=== PATIENT | male | born 1930 | race Caucasian/White ===

== ENCOUNTER 2018-01-09 09:59 | Emergency (ER) | payer OTHER ==
[2018-01-09 11:13] LABS: ADD MAN DIFF? NO
[2018-01-09 11:16] LABS: WHITE BLOOD COUNT 9.7 10^3/ul (4.8-10.8)
[2018-01-09 11:16] LABS: BASOPHILS % 0.3 % (0.0-2.0); EOSINOPHILS # 0.3 10^3/ul (0.0-0.5); EOSINOPHILS % 3.2 % (0.0-7.0); HEMOGLOBIN 11.4 g/dl (14.0-18.0); LYMPHOCYTES # 1.2 10^3/ul (0.8-2.9); LYMPHOCYTES % 12.3 % (15.0-51.0); MEAN CORPUSCULAR HEMOGLOBIN 32.1 pg (29.0-33.0); MEAN CORPUSCULAR HGB CONC 34.5 g/dl (32.0-37.0); MEAN PLATELET VOLUME 9.7 fl (7.4-10.4); MONOCYTE # 0.7 10^3/ul (0.3-0.9); NEUTROPHIL # 7.4 10^3/ul (1.6-7.5); NEUTROPHILS % 76.7 % (39.0-77.0); PLATELET COUNT 250 10^3/UL (140-415); RED BLOOD COUNT 3.55 10^6/ul (4.70-6.10); RED CELL DISTRIBUTION WIDTH 15.3 % (11.5-14.5)
[2018-01-09 11:33] LABS: ALANINE AMINOTRANSFERASE 25 IU/L (13-69); ALBUMIN 3.5 g/dl (3.3-4.9); ALBUMIN/GLOBULIN RATIO 1.12; ALKALINE PHOSPHATASE 97 IU/L (42-121); ANION GAP 15 (8-16); ASPARTATE AMINO TRANSFERASE 28 IU/L (15-46); BILIRUBIN,INDIRECT 1.3 mg/dl (0-1.1); BILIRUBIN,TOTAL 1.3 mg/dl (0.2-1.3); BLOOD UREA NITROGEN 26 mg/dl (7-20); CALCIUM 8.4 mg/dl (8.4-10.2); CARBON DIOXIDE 23 mmol/L (21-31); CHLORIDE 98 mmol/L (97-110); CREATININE 1.18 mg/dl (0.61-1.24); GLUCOSE 91 mg/dl (70-220); INR 0.97; LIPASE 157 U/L (23-300); POTASSIUM 4.5 mmol/L (3.5-5.1); SODIUM 131 mmol/L (135-144); TOTAL PROTEIN 6.6 g/dl (6.1-8.1)
[2018-01-09 11:35] LABS: PARTIAL THROMBOPLASTIN TIME 29.2 Sec (25.0-35.0)
[2018-01-09 11:47] LABS: TROPONIN-I < 0.012 ng/ml (0.00-0.12)
[2018-01-09] MEDS: ONDANSETRON 4 MG INJ IV (12:32)
[2018-01-09] MEDS: morphine 4 MG/ML VIAL IV (12:32)
== END 2018-01-09 13:08 | disposition home or self-care (01) ==
LOC: E/R 09:59
DX: R10.84 Generalized abdominal pain (principal); Z79.01 Long term (current) use of anticoagulants
CPT/HCPCS: 36415; 71045; 74176; 80053; 83690; 84484; 85025; 85610; 85730; 93005; 96374; 96375; 99285-25

== ENCOUNTER 2018-01-11 22:44 | Inpatient (IN) | payer OTHER ==
[2018-01-11] MEDS: SOD CHLORIDE 0.9% 500 ML IV (23:39)
[2018-01-11] MEDS: morphine 2 MG INJ IV (23:40)
[2018-01-11] MEDS: ONDANSETRON 4 MG INJ IV (23:40)
[2018-01-11 23:53] LABS: ADD MAN DIFF? NO
[2018-01-11 23:57] LABS: BASOPHILS % 0.2 % (0.0-2.0); EOSINOPHILS # 0.1 10^3/ul (0.0-0.5); EOSINOPHILS % 0.5 % (0.0-7.0); HEMATOCRIT 31.9 % (42.0-52.0); HEMOGLOBIN 11.2 g/dl (14.0-18.0); LYMPHOCYTES # 1.6 10^3/ul (0.8-2.9); LYMPHOCYTES % 14.9 % (15.0-51.0); MEAN CORPUSCULAR HEMOGLOBIN 31.7 pg (29.0-33.0); MEAN CORPUSCULAR HGB CONC 35.1 g/dl (32.0-37.0); MEAN CORPUSCULAR VOLUME 90.4 fl (82.0-101.0); MEAN PLATELET VOLUME 10.6 fl (7.4-10.4); MONOCYTE # 0.7 10^3/ul (0.3-0.9); MONOCYTES % 7.1 % (0.0-11.0); NEUTROPHILS % 76.7 % (39.0-77.0); PLATELET COUNT 279 10^3/UL (140-415); RED BLOOD COUNT 3.53 10^6/ul (4.70-6.10); RED CELL DISTRIBUTION WIDTH 14.8 % (11.5-14.5)
[2018-01-11 23:57] LABS: WHITE BLOOD COUNT 10.4 10^3/ul (4.8-10.8)
[2018-01-12 00:20] LABS: ALANINE AMINOTRANSFERASE 22 IU/L (13-69); ALBUMIN 3.9 g/dl (3.3-4.9); ALBUMIN/GLOBULIN RATIO 1.39; ALKALINE PHOSPHATASE 95 IU/L (42-121); ANION GAP 14 (8-16); ASPARTATE AMINO TRANSFERASE 27 IU/L (15-46); BILIRUBIN,INDIRECT 0.9 mg/dl (0-1.1); BILIRUBIN,TOTAL 0.9 mg/dl (0.2-1.3); BLOOD UREA NITROGEN 31 mg/dl (7-20); CARBON DIOXIDE 20 mmol/L (21-31); CHLORIDE 93 mmol/L (97-110); CREATININE 1.07 mg/dl (0.61-1.24); GLUCOSE 96 mg/dl (70-220); POTASSIUM 5.2 mmol/L (3.5-5.1); SODIUM 122 mmol/L (135-144); TOTAL PROTEIN 6.7 g/dl (6.1-8.1)
[2018-01-12 00:32] LABS: B-TYPE NATRIURETIC PEPTIDE 4660 PG/ML (0-450)
[2018-01-12 00:33] LABS: TROPONIN-I < 0.012 ng/ml (0.00-0.12)
[2018-01-12] MEDS: FUROSEMIDE 40 MG INJ IV (02:00)
[2018-01-12] MEDS: NA POLYST SULFON 15 GM/60 ML BTL PO (02:01)
[2018-01-12] MEDS ORDERED: ACETAMINOPHEN 325 MG TAB PO ×2 (03:00→08:00)
[2018-01-12] MEDS ORDERED: ONDANSETRON 4 MG INJ IV ×2 (03:00→08:00)
[2018-01-12] MEDS: HYDROCODONE/APAP (5/325) TAB PO (03:02)
[2018-01-12] MEDS: SOD CHLORIDE 0.9% 1,000 ML IV ×3 (03:02→17:38)
[2018-01-12 04:16] LABS: SODIUM,URINE RANDOM 96 mmol/L (30-90)
[2018-01-12 04:17] LABS: ADD UMIC NO; UR ASCORBIC ACID NEGATIVE (NEGATIVE); UR BILIRUBIN (Dip) NEGATIVE (NEGATIVE); UR BLOOD (Dip) NEGATIVE (NEGATIVE); UR CLARITY CLEAR (CLEAR); UR COLOR COLORLESS (YELLOW); UR GLUCOSE (Dip) NEGATIVE (NEGATIVE); UR KETONES (Dip) NEGATIVE (NEGATIVE); UR LEUKOCYTE ESTERASE (Dip) NEGATIVE Leu/ul (NEGATIVE); UR NITRITE (Dip) NEGATIVE (NEGATIVE); UR SPECIFIC GRAVITY (Dip) 1.004 (1.003-1.030); UR TOTAL PROTEIN (Dip) NEGATIVE (NEGATIVE); UR UROBILINOGEN (Dip) NEGATIVE (NEGATIVE)
[2018-01-12 05:02] LABS: OSMOLALITY,URINE 235 mOsm/kg (250-1200)
[2018-01-12 05:19] LABS: OSMOLALITY 260 mOsm/kg (280-295)
[2018-01-12] MEDS ORDERED: ALBUTEROL/IPRATROPIUM (NEB) 3 ML AMP HHN (08:00)
[2018-01-12] MEDS ORDERED: NACL 0.9% 3 ML SYG IV (08:00)
[2018-01-12] MEDS ORDERED: NITROGLYCERIN (SL) 0.4 MG TAB SL (08:00)
[2018-01-12 08:06] LABS: ADD MAN DIFF? NO
[2018-01-12 08:10] LABS: WHITE BLOOD COUNT 9.8 10^3/ul (4.8-10.8)
[2018-01-12 08:10] LABS: BASOPHILS % 0.2 % (0.0-2.0); EOSINOPHILS # 0.1 10^3/ul (0.0-0.5); EOSINOPHILS % 0.7 % (0.0-7.0); HEMATOCRIT 34.9 % (42.0-52.0); HEMOGLOBIN 12.1 g/dl (14.0-18.0); LYMPHOCYTES # 1.9 10^3/ul (0.8-2.9); LYMPHOCYTES % 19.3 % (15.0-51.0); MEAN CORPUSCULAR HEMOGLOBIN 31.6 pg (29.0-33.0); MEAN CORPUSCULAR HGB CONC 34.7 g/dl (32.0-37.0); MEAN CORPUSCULAR VOLUME 91.1 fl (82.0-101.0); MEAN PLATELET VOLUME 9.8 fl (7.4-10.4); MONOCYTES % 9.8 % (0.0-11.0); NEUTROPHIL # 6.8 10^3/ul (1.6-7.5); NEUTROPHILS % 69.4 % (39.0-77.0); PLATELET COUNT 291 10^3/UL (140-415); RED BLOOD COUNT 3.83 10^6/ul (4.70-6.10); RED CELL DISTRIBUTION WIDTH 14.6 % (11.5-14.5)
[2018-01-12 08:25] LABS: CREATINE KINASE 131 IU/L (23-200)
[2018-01-12 08:39] LABS: CK INDEX 3.5; TROPONIN-I 0.016 ng/ml (0.00-0.12)
[2018-01-12 08:40] LABS: ALANINE AMINOTRANSFERASE 29 IU/L (13-69); ALBUMIN/GLOBULIN RATIO 1.33; ALKALINE PHOSPHATASE 103 IU/L (42-121); ANION GAP 16 (8-16); ASPARTATE AMINO TRANSFERASE 25 IU/L (15-46); BILIRUBIN,INDIRECT 0.8 mg/dl (0-1.1); BILIRUBIN,TOTAL 0.8 mg/dl (0.2-1.3); BLOOD UREA NITROGEN 28 mg/dl (7-20); CARBON DIOXIDE 22 mmol/L (21-31); CHLORIDE 97 mmol/L (97-110); CREATININE 1.18 mg/dl (0.61-1.24); GLUCOSE 93 mg/dl (70-220); POTASSIUM 4.3 mmol/L (3.5-5.1); SODIUM 131 mmol/L (135-144)
[2018-01-12 08:41] LABS: CK-MB 4.56 ng/ml (0.0-2.4)
[2018-01-12] MEDS: FERROUS SULFATE (EC) 325 MG TAB PO (10:18)
[2018-01-12] MEDS: ALLOPURINOL 100 MG TAB PO ×2 (10:18→21:27)
[2018-01-12] MEDS: SUCRALFATE (100 MG/ML) 10ML CUP PO ×4 (10:18→21:27)
[2018-01-12] MEDS: MAGNESIUM OXIDE 400 MG TAB PO ×2 (10:19→21:27)
[2018-01-12] MEDS: DOCUSATE SODIUM 100 MG CAP PO ×2 (10:27→21:27)
[2018-01-12] MEDS: CLOPIDOGREL 75 MG TAB PO (10:27)
[2018-01-12] MEDS: PANTOPRAZOLE (EC) 40 MG TAB PO ×2 (12:29→17:58)
[2018-01-12 14:32] LABS: CREATINE KINASE 108 IU/L (23-200)
[2018-01-12 14:43] LABS: CK INDEX 3.6
[2018-01-12 14:48] LABS: CK-MB 3.87 ng/ml (0.0-2.4); TROPONIN-I < 0.012 ng/ml (0.00-0.12)
[2018-01-12] MEDS: morphine 2 MG INJ IV (18:33)
[2018-01-12] MEDS: ATORVASTATIN 80 MG TAB PO (21:27)
[2018-01-13] MEDS: SOD CHLORIDE 0.9% 1,000 ML IV ×2 (00:13→12:51)
[2018-01-13] MEDS: morphine 2 MG INJ IV ×5 (04:39→20:43)
[2018-01-13] MEDS: PANTOPRAZOLE (EC) 40 MG TAB PO ×2 (06:21→17:34)
[2018-01-13] MEDS: SUCRALFATE (100 MG/ML) 10ML CUP PO ×4 (08:33→20:40)
[2018-01-13] MEDS: MAGNESIUM OXIDE 400 MG TAB PO ×2 (08:33→20:40)
[2018-01-13] MEDS: CLOPIDOGREL 75 MG TAB PO (08:34)
[2018-01-13] MEDS: POTASSIUM CHLORIDE (SR) 20 MEQ TAB PO (08:34)
[2018-01-13] MEDS: DOCUSATE SODIUM 100 MG CAP PO ×2 (08:34→20:40)
[2018-01-13] MEDS: ALLOPURINOL 100 MG TAB PO ×2 (08:34→20:40)
[2018-01-13 08:58] LABS: ADD MAN DIFF? NO
[2018-01-13 09:05] LABS: BASOPHILS % 0.5 % (0.0-2.0); EOSINOPHILS # 0.2 10^3/ul (0.0-0.5); EOSINOPHILS % 2.4 % (0.0-7.0); HEMATOCRIT 30.1 % (42.0-52.0); HEMOGLOBIN 10.4 g/dl (14.0-18.0); LYMPHOCYTES # 2.1 10^3/ul (0.8-2.9); LYMPHOCYTES % 26.5 % (15.0-51.0); MEAN CORPUSCULAR HEMOGLOBIN 31.9 pg (29.0-33.0); MEAN CORPUSCULAR HGB CONC 34.6 g/dl (32.0-37.0); MEAN CORPUSCULAR VOLUME 92.3 fl (82.0-101.0); MEAN PLATELET VOLUME 10.1 fl (7.4-10.4); MONOCYTES % 12.5 % (0.0-11.0); NEUTROPHIL # 4.6 10^3/ul (1.6-7.5); NEUTROPHILS % 57.5 % (39.0-77.0); PLATELET COUNT 273 10^3/UL (140-415); RED BLOOD COUNT 3.26 10^6/ul (4.70-6.10); RED CELL DISTRIBUTION WIDTH 14.9 % (11.5-14.5)
[2018-01-13 09:22] LABS: ANION GAP 15 (8-16); BLOOD UREA NITROGEN 26 mg/dl (7-20); CALCIUM 8.4 mg/dl (8.4-10.2); CARBON DIOXIDE 23 mmol/L (21-31); CHLORIDE 101 mmol/L (97-110); CREATININE 1.18 mg/dl (0.61-1.24); GLUCOSE 83 mg/dl (70-220); MAGNESIUM 1.3 mg/dl (1.7-2.5); PHOSPHORUS 3.7 mg/dl (2.5-4.9); POTASSIUM 3.8 mmol/L (3.5-5.1); SODIUM 135 mmol/L (135-144)
[2018-01-13] MEDS: IOHEXOL 14.3 MG(I)/ML (ADULT) BTL PO (16:27)
[2018-01-13] MEDS ORDERED: SOD CHLORIDE 0.9% 100 ML (18:34)
[2018-01-13] MEDS ORDERED: IOHEXOL 300MG/ML 150 ML BTL (18:34)
[2018-01-13] MEDS: ATORVASTATIN 80 MG TAB PO (20:40)
[2018-01-13] MEDS: MAGNESIUM SULFATE 4 GM/100 ML 100 ML IVPB (22:05)
[2018-01-14] MEDS: morphine 2 MG INJ IV ×4 (01:48→19:11)
[2018-01-14] MEDS: PANTOPRAZOLE (EC) 40 MG TAB PO ×2 (06:27→17:01)
[2018-01-14] MEDS: DOCUSATE SODIUM 100 MG CAP PO ×2 (09:00→22:01)
[2018-01-14] MEDS: CLOPIDOGREL 75 MG TAB PO (09:20)
[2018-01-14] MEDS: MAGNESIUM OXIDE 400 MG TAB PO ×2 (09:20→22:01)
[2018-01-14] MEDS: SUCRALFATE (100 MG/ML) 10ML CUP PO ×4 (09:20→22:01)
[2018-01-14] MEDS: ALLOPURINOL 100 MG TAB PO ×2 (09:20→22:02)
[2018-01-14] MEDS: POTASSIUM CHLORIDE (SR) 20 MEQ TAB PO (09:21)
[2018-01-14] MEDS: LISINOPRIL 10 MG TAB PO (09:21)
[2018-01-14] MEDS: predniSONE 50 MG TAB PO (17:01)
[2018-01-14] MEDS: ATORVASTATIN 80 MG TAB PO (22:01)
[2018-01-15] MEDS: hydrALAzine 20 MG INJ IV (04:41)
[2018-01-15] MEDS: PANTOPRAZOLE (EC) 40 MG TAB PO (05:53)
[2018-01-15] MEDS: SUCRALFATE (100 MG/ML) 10ML CUP PO ×2 (08:48→12:19)
[2018-01-15] MEDS: ALLOPURINOL 100 MG TAB PO (08:48)
[2018-01-15] MEDS: LISINOPRIL 10 MG TAB PO (08:48)
[2018-01-15] MEDS: POTASSIUM CHLORIDE (SR) 20 MEQ TAB PO (08:48)
[2018-01-15] MEDS: DOCUSATE SODIUM 100 MG CAP PO (08:48)
[2018-01-15] MEDS: MAGNESIUM OXIDE 400 MG TAB PO (08:48)
[2018-01-15] MEDS: CLOPIDOGREL 75 MG TAB PO (08:49)
[2018-01-15] MEDS: morphine 2 MG INJ IV (10:38)
[2018-01-15 11:36] LABS: ALANINE AMINOTRANSFERASE 26 IU/L (13-69); ALBUMIN/GLOBULIN RATIO 1.03; ALKALINE PHOSPHATASE 92 IU/L (42-121); ANION GAP 15 (8-16); ASPARTATE AMINO TRANSFERASE 23 IU/L (15-46); BILIRUBIN,INDIRECT 0.6 mg/dl (0-1.1); BILIRUBIN,TOTAL 0.6 mg/dl (0.2-1.3); BLOOD UREA NITROGEN 28 mg/dl (7-20); CALCIUM 8.5 mg/dl (8.4-10.2); CARBON DIOXIDE 22 mmol/L (21-31); CHLORIDE 99 mmol/L (97-110); CREATININE 1.16 mg/dl (0.61-1.24); GLUCOSE 97 mg/dl (70-220); POTASSIUM 4.8 mmol/L (3.5-5.1); SODIUM 131 mmol/L (135-144); TOTAL PROTEIN 5.9 g/dl (6.1-8.1)
== END 2018-01-15 16:50 | disposition home or self-care (01) | DRG 543 ==
LOC: E/R 22:44 → TEL 01-12 13:56
DX: M80.08XA Age-related osteoporosis with current pathological fracture, vertebra(e), initial encounter for fracture (principal); E87.0 Hyperosmolality and hypernatremia; E87.5 Hyperkalemia; F03.90 Unspecified dementia, unspecified severity, without behavioral disturbance, psychotic disturbance, mood disturbance, and anxiety; E86.0 Dehydration; I25.10 Atherosclerotic heart disease of native coronary artery without angina pectoris; M1A.9XX0 Chronic gout, unspecified, without tophus (tophi); I10 Essential (primary) hypertension; R07.81 Pleurodynia; R10.817 Generalized abdominal tenderness; M54.9 Dorsalgia, unspecified; I25.2 Old myocardial infarction; Z79.02 Long term (current) use of antithrombotics/antiplatelets; Z87.11 Personal history of peptic ulcer disease; Z95.5 Presence of coronary angioplasty implant and graft; Z90.49 Acquired absence of other specified parts of digestive tract
CPT/HCPCS: 36415; 71045; 74177; 80048; 80053; 81003; 82550; 82553; 83735; 83880; 83930; 83935; 84100; 84300; 84484; 85025; 93005; 96361; 96374; 96375; 99285-25

== ENCOUNTER 2018-02-24 07:41 | Emergency (ER) | payer OTHER ==
[2018-02-24 08:58] LABS: ADD MAN DIFF? NO
[2018-02-24 09:00] LABS: BASOPHILS % 0.4 % (0.0-2.0); EOSINOPHILS # 1.1 10^3/ul (0.0-0.5); EOSINOPHILS % 13.2 % (0.0-7.0); HEMATOCRIT 31.9 % (42.0-52.0); HEMOGLOBIN 10.7 g/dl (14.0-18.0); LYMPHOCYTES # 2.5 10^3/ul (0.8-2.9); LYMPHOCYTES % 30.7 % (15.0-51.0); MEAN CORPUSCULAR HEMOGLOBIN 31.4 pg (29.0-33.0); MEAN CORPUSCULAR HGB CONC 33.5 g/dl (32.0-37.0); MEAN CORPUSCULAR VOLUME 93.5 fl (82.0-101.0); MEAN PLATELET VOLUME 9.8 fl (7.4-10.4); MONOCYTE # 0.9 10^3/ul (0.3-0.9); MONOCYTES % 10.5 % (0.0-11.0); NEUTROPHIL # 3.6 10^3/ul (1.6-7.5); NEUTROPHILS % 44.8 % (39.0-77.0); PLATELET COUNT 411 10^3/UL (140-415); RED BLOOD COUNT 3.41 10^6/ul (4.70-6.10)
[2018-02-24 09:00] LABS: WHITE BLOOD COUNT 8.1 10^3/ul (4.8-10.8)
[2018-02-24] MEDS: SOD CHLORIDE 0.9% 500 ML IV (09:01)
[2018-02-24] MEDS: morphine 4 MG/ML VIAL IV ×2 (09:01→10:26)
[2018-02-24] MEDS: ONDANSETRON 4 MG INJ IV ×2 (09:01→10:26)
[2018-02-24 09:17] LABS: ALANINE AMINOTRANSFERASE 21 IU/L (13-69); ALBUMIN 3.4 g/dl (3.3-4.9); ALBUMIN/GLOBULIN RATIO 1.13; ALKALINE PHOSPHATASE 104 IU/L (42-121); ANION GAP 16 (8-16); ASPARTATE AMINO TRANSFERASE 21 IU/L (15-46); BILIRUBIN,INDIRECT 0.4 mg/dl (0-1.1); BILIRUBIN,TOTAL 0.4 mg/dl (0.2-1.3); BLOOD UREA NITROGEN 40 mg/dl (7-20); CALCIUM 9.2 mg/dl (8.4-10.2); CARBON DIOXIDE 21 mmol/L (21-31); CHLORIDE 99 mmol/L (97-110); CREATININE 1.25 mg/dl (0.61-1.24); GLUCOSE 97 mg/dl (70-220); POTASSIUM 4.5 mmol/L (3.5-5.1); SODIUM 131 mmol/L (135-144); TOTAL PROTEIN 6.4 g/dl (6.1-8.1)
[2018-02-24 09:39] LABS: TROPONIN-I < 0.012 ng/ml (0.00-0.12)
[2018-02-24 10:05] LABS: ADD UMIC NO; UR ASCORBIC ACID 20 mg/dL (NEGATIVE); UR BILIRUBIN (Dip) NEGATIVE (NEGATIVE); UR BLOOD (Dip) NEGATIVE (NEGATIVE); UR CLARITY CLEAR (CLEAR); UR COLOR YELLOW (YELLOW); UR GLUCOSE (Dip) NEGATIVE (NEGATIVE); UR KETONES (Dip) NEGATIVE (NEGATIVE); UR LEUKOCYTE ESTERASE (Dip) NEGATIVE Leu/ul (NEGATIVE); UR NITRITE (Dip) NEGATIVE (NEGATIVE); UR TOTAL PROTEIN (Dip) NEGATIVE (NEGATIVE); UR UROBILINOGEN (Dip) NEGATIVE (NEGATIVE)
== END 2018-02-24 12:55 | disposition home or self-care (01) ==
LOC: E/R 07:41
DX: R07.89 Other chest pain (principal); I10 Essential (primary) hypertension; E87.1 Hypo-osmolality and hyponatremia; Z79.82 Long term (current) use of aspirin
CPT/HCPCS: 36415; 71045; 80053; 81003; 84484; 85025; 93005; 96374; 96375; 99285-25